=== PATIENT | male | born 1995 | race Caucasian/White ===

== ENCOUNTER 2017-05-20 21:02 | Emergency (ER) | payer OTHER ==
[~2017-05-20] VITALS: Ht 182.9 cm; Wt 77.2 kg
[2017-05-20 22:30] VITALS: BP 128/72
== END 2017-05-20 23:09 | disposition home or self-care (01) ==
LOC: ED 22:50
DX: F10.120 Alcohol abuse with intoxication, uncomplicated (principal); F12.10 Cannabis abuse, uncomplicated; F19.10 Other psychoactive substance abuse, uncomplicated; F90.9 Attention-deficit hyperactivity disorder, unspecified type; S80.212A Abrasion, left knee, initial encounter; S80.211A Abrasion, right knee, initial encounter; W19.XXXA Unspecified fall, initial encounter; Y93.89 Activity, other specified; Y99.8 Other external cause status; Y92.89 Other specified places as the place of occurrence of the external cause
CPT/HCPCS: 99281

== ENCOUNTER 2017-06-05 10:35 | Emergency (ER) | payer OTHER ==
[~2017-06-05] VITALS: Ht 182.9 cm; Wt 72.0 kg
[2017-06-05 11:42] LABS: BASOPHILS # (AUTO) 0.02 x10^3/uL (0-0.3); BASOPHILS % (AUTO) 1 % (0-1); EOSINOPHILS # (AUTO) 0.03 x10^3/uL (0-0.8); EOSINOPHILS % (AUTO) 1 % (1-7); LYMPHOCYTES % (AUTO) 32 % (22-44); MD NO; MEAN CORPUSCULAR HEMOGLOBIN 31.4 pg (27.5-34.5); MEAN CORPUSCULAR HGB CONC 34.2 g/dL (33.2-36.2); MEAN CORPUSCULAR VOLUME 91.8 fL (81-97); MEAN PLATELET VOLUME 7.9 fL (7.4-10.4); MONOCYTES % (AUTO) 13 % (2-9); NEUTROPHILS # (AUTO) 2.59 x10^3/uL (1.8-8.0); NEUTROPHILS % (AUTO) 55 % (42-75); PLATELET COUNT 241 x10^3/uL (130-400); RED BLOOD COUNT 4.99 x10^6/uL (4.38-5.82); RED CELL DISTRIBUTION WIDTH 13.3 % (9.4-14.8)
[2017-06-05 11:54] LABS: CHLORIDE 105 mmol/L (98-107)
[2017-06-05 11:59] LABS: ALBUMIN 3.7 g/dL (3.4-5.0); ALKALINE PHOSPHATASE 78 U/L (45-117); ANION GAP 8 mmol/L (5-15); BILIRUBIN,TOTAL 1.3 mg/dL (0.2-1.0); CALCIUM 8.9 mg/dL (8.5-10.1); TOTAL PROTEIN 7.7 g/dL (6.4-8.2); TROPONIN I < 0.015 ng/mL (0.000-0.045)
[2017-06-05 12:01] LABS: ALANINE AMINOTRANSFERASE 32 U/L (12-78); CREATININE 0.96 mg/dL (0.7-1.3)
[2017-06-05 12:45] VITALS: BP 123/86
== END 2017-06-05 12:47 | disposition home or self-care (01) ==
LOC: ED 11:04
DX: R00.2 Palpitations (principal); F90.9 Attention-deficit hyperactivity disorder, unspecified type
CPT/HCPCS: 36415; 71046; 80053; 84484; 85025; 93005; 99285

== ENCOUNTER 2019-03-15 16:09 | Emergency (ER) | payer OTHER ==
[~2019-03-15] VITALS: Ht 182.9 cm; Wt 79.5 kg
[2019-03-15] MEDS ORDERED: HYDROcodone/APAP 5/325 TABLET PO ONE (17:00)
[2019-03-15] MEDS ORDERED: HYDROcodone/APAP 5/325 TABLET ONE (17:29)
--- NOTE | 2019-03-15 17:59 | NUR ---
BREAK RN: PATIENT RESTING COMFORTABLY WAITING FOR IMAGING. NO NEEDS AT THIS TIME
[2019-03-15 19:03] VITALS: BP 119/78
== END 2019-03-15 19:06 | disposition home or self-care (01) ==
LOC: ED 16:40
DX: S82.291A Other fracture of shaft of right tibia, initial encounter for closed fracture (principal); F17.200 Nicotine dependence, unspecified, uncomplicated; Z72.89 Other problems related to lifestyle; X58.XXXA Exposure to other specified factors, initial encounter; Y93.89 Activity, other specified; Y92.89 Other specified places as the place of occurrence of the external cause; Y99.8 Other external cause status
CPT/HCPCS: 99283